=== PATIENT | female | born 1960 | race Caucasian/White ===

== ENCOUNTER 2019-04-10 02:05 | Emergency (ER) | payer SELFPAY ==
[~2019-04-10] VITALS: Ht 152.4 cm; Wt 106.6 kg
[2019-04-10] MEDS ORDERED: ALBUTEROL SULF 0.083% NEB SOLN 3 ML NEB NEB STA (02:12)
[2019-04-10] MEDS ORDERED: IPRATROPIUM BROMIDE 0.02% 2.5 ML NEB NEB ONE (02:15)
[2019-04-10] MEDS ORDERED: METHYLPREDNISOLONE SOD SUCC 125 MG/2ML VIAL IM ONE (02:15)
[2019-04-10 03:53] VITALS: BP 113/48
--- NOTE | 2019-04-10 07:26 | Diagnostic Imaging Report ---
EXAMINATION: CHEST 2 VIEWS INDICATION: Cough, short of breath COMPARISON: None FINDINGS: PA and lateral views TUBES and LINES: None. LUNGS: Lungs are well inflated. There is mild prominence of the central pulmonary vasculature, consistent with pulmonary venous congestion. Calcified granuloma in the left upper lobe. PLEURA: No pleural effusion or pneumothorax. HEART AND MEDIASTINUM: Borderline cardiomegaly. BONES AND SOFT TISSUES: No acute osseous lesion. Soft tissues are unremarkable. UPPER ABDOMEN: No free air under the diaphragm. IMPRESSION: Borderline cardiomegaly and central pulmonary vascular congestion. Signed by: Jon Edmond DO on 04/10/2019 7:23 AM
== END 2019-04-10 04:14 | disposition home or self-care (01) ==
LOC: ER 02:05
DX: J44.0 Chronic obstructive pulmonary disease with (acute) lower respiratory infection (principal); J44.1 Chronic obstructive pulmonary disease with (acute) exacerbation; J20.9 Acute bronchitis, unspecified; F17.200 Nicotine dependence, unspecified, uncomplicated
CPT/HCPCS: 71046; 94640; 99283; J2930

== ENCOUNTER 2021-01-24 01:50 | Emergency (ER) | payer SELFPAY ==
[~2021-01-24] VITALS: Ht 152.4 cm; Wt 106.6 kg
[2021-01-24] MEDS ORDERED: SODIUM CHLORIDE 0.9% 1000ML 1,000 ML IV STA (01:55)
[2021-01-24] MEDS ORDERED: CLINDAMYCIN 600MG / 50ML 50 ML IV STA (01:55)
[2021-01-24 02:05] LABS: BASOPHILS % 0.6 % (0.0-1.0); EOSINOPHILS # (AUTO) 0.3 (0.0-0.4); EOSINOPHILS % 3.9 % (0.0-6.0); HEMATOCRIT 42.8 % (34.2-44.1); HEMOGLOBIN 13.8 g/dL (12.0-16.0); LYMPHOCYTES # (AUTO) 1.6 (1.0-3.2); LYMPHOCYTES % 23.9 % (18.0-39.1); MEAN CORPUSCULAR HEMOGLOBIN 29.6 pg (28-32); MEAN CORPUSCULAR HGB CONC 32.2 g/dL (31-35); MEAN CORPUSCULAR VOLUME 91.8 fL (81-99); MONOCYTES # (AUTO) 0.9 (0.2-0.8); MONOCYTES % 13.4 % (4.4-11.3); NEUTROPHILS % 58.1 % (38.7-80.0); PLATELET COUNT 221 x10e3/uL (140-360); RED BLOOD COUNT 4.66 x10e6/uL (3.6-5.1); RED CELL DISTRIBUTION WIDTH 13.8 % (11.7-14.4)
[2021-01-24 02:24] LABS: ALANINE AMINOTRANSFERASE 14 IU/L (0-55); ALBUMIN/GLOBULIN RATIO 0.7 (0.8-2.0); ALKALINE PHOSPHATASE 68 IU/L (40-150); ANION GAP 18.5 mmol/L (8-16); BLOOD UREA NITROGEN 16 mg/dL (7-26); BUN/CREATININE RATIO 23 (6-25); CALCIUM 8.7 mg/dL (8.4-10.2); CARBON DIOXIDE 23 mmol/L (22-29); CHLORIDE 100 mmol/L (98-107); EST GLOMERULAR FILTRATION RATE > 60 ML/MIN (60-); GLUCOSE 327 mg/dL (74-118); POTASSIUM 4.5 mmol/L (3.5-5.1); SODIUM 137 mmol/L (136-145)
[2021-01-24] MEDS ORDERED: FLUCONAZOLE150 MG PO (02:50)
== END 2021-01-24 03:30 | disposition home or self-care (01) ==
LOC: ER 01:56
DX: B37.3 Candidiasis of vulva and vagina (principal); E11.65 Type 2 diabetes mellitus with hyperglycemia
CPT/HCPCS: 36415; 80053; 85025; 99282; J7030

== ENCOUNTER 2021-02-15 21:49 | Emergency (ER) | payer SELFPAY ==
[~2021-02-15] VITALS: Ht 152.4 cm; Wt 106.6 kg
[~2021-02-15 21:49] MED LIST: FLUCONAZOLE150 MG PO
== END 2021-02-15 22:30 | disposition home or self-care (01) ==
LOC: ER 22:07
DX: H66.91 Otitis media, unspecified, right ear (principal); E11.9 Type 2 diabetes mellitus without complications
CPT/HCPCS: 99282

== ENCOUNTER 2021-06-04 17:34 | Emergency (ER) | payer SELFPAY ==
[~2021-06-04] VITALS: Ht 152.4 cm; Wt 106.6 kg
[2021-06-04] MEDS ORDERED: KETOROLAC TROMETHAMINE 60 MG/2 ML VIAL IM ONE (18:00)
== END 2021-06-04 18:36 | disposition home or self-care (01) ==
LOC: ER 17:39
DX: R10.32 Left lower quadrant pain (principal); S39.011A Strain of muscle, fascia and tendon of abdomen, initial encounter; E11.9 Type 2 diabetes mellitus without complications; I50.9 Heart failure, unspecified; E78.5 Hyperlipidemia, unspecified
CPT/HCPCS: 99283; J1885

== ENCOUNTER 2021-08-17 04:28 | Emergency (ER) | payer SELFPAY ==
[~2021-08-17] VITALS: Ht 152.4 cm; Wt 108.9 kg
[2021-08-17 05:04] LABS: CLARITY,URINE CLOUDY (CLEAR); COLOR,URINE BROWN (YELLOW); KETONES,URINE TRACE (NEGATIVE); LEUKOCYTE ESTERASE ,URINE LARGE (NEGATIVE); NITRITE,URINE POSITIVE (NEGATIVE); PROTEIN,URINE DIPSTICK >=300 (NEGATIVE); URINE UROBILINOGEN 1 mg/dL (0.2 - 1)
[2021-08-17 05:08] LABS: BACTERIA,URINE MODERATE /HPF; EPITHELIAL CELLS,URINE FEW /LPF; RBC,URINE >50 /HPF (0-5)
== END 2021-08-17 05:30 | disposition home or self-care (01) ==
LOC: ER 04:46
DX: N39.0 Urinary tract infection, site not specified (principal); E11.9 Type 2 diabetes mellitus without complications; Z90.49 Acquired absence of other specified parts of digestive tract; F17.210 Nicotine dependence, cigarettes, uncomplicated; Z88.5 Allergy status to narcotic agent; Z88.0 Allergy status to penicillin; Z88.8 Allergy status to other drugs, medicaments and biological substances; E66.9 Obesity, unspecified; Z68.42 Body mass index [BMI] 45.0-49.9, adult
CPT/HCPCS: 81001; 87086; 87186; 99283

== ENCOUNTER 2022-06-11 22:50 | Emergency (ER) | payer SELFPAY ==
[~2022-06-11] VITALS: Ht 152.4 cm; Wt 108.9 kg
[2022-06-11 23:31] LABS: BASOPHILS % 0.5 % (0.0-1.0); EOSINOPHILS # (AUTO) 0.2 (0.0-0.4); EOSINOPHILS % 2.5 % (0.0-6.0); HEMOGLOBIN 15.8 g/dL (12.0-16.0); LYMPHOCYTES # (AUTO) 1.9 (1.0-3.2); LYMPHOCYTES % 22.9 % (18.0-39.1); MEAN CORPUSCULAR HEMOGLOBIN 30.3 pg (28-32); MEAN CORPUSCULAR HGB CONC 32.2 g/dL (31-35); MEAN CORPUSCULAR VOLUME 93.9 fL (81-99); MONOCYTES # (AUTO) 1.1 (0.2-0.8); MONOCYTES % 12.8 % (4.4-11.3); NEUTROPHILS # (AUTO) 5.1 (2.1-6.9); NEUTROPHILS % 61.1 % (38.7-80.0); PLATELET COUNT 179 x10e3/uL (140-360); RED BLOOD COUNT 5.22 x10e6/uL (3.6-5.1); RED CELL DISTRIBUTION WIDTH 12.2 % (11.7-14.4)
[2022-06-11 23:36] LABS: ALBUMIN 3.5 g/dL (3.5-5.0); CALCIUM 8.8 mg/dL (8.4-10.2); CREATININE, SERUM 0.65 mg/dL (0.57-1.11)
[2022-06-12] MEDS ORDERED: KETOROLAC TROMETHAMINE 30 MG/ML VIAL IV STA (00:41)
[2022-06-12 00:44] LABS: CLARITY,URINE SL CLOUDY (CLEAR); COLOR,URINE YELLOW (YELLOW); LEUKOCYTE ESTERASE ,URINE TRACE (NEGATIVE); NITRITE,URINE POSITIVE (NEGATIVE); PROTEIN,URINE DIPSTICK NEGATIVE (NEGATIVE)
[2022-06-12 00:45] LABS: KETONES,URINE 1+ (NEGATIVE); URINE UROBILINOGEN 0.2 mg/dL (0.2 - 1)
[2022-06-12 00:57] LABS: BACTERIA,URINE MANY /HPF; RBC,URINE 0-5 /HPF (0-5)
[2022-06-12 00:58] LABS: EPITHELIAL CELLS,URINE MODERATE /LPF
[2022-06-12] MEDS ORDERED: CIPRO500 MG PO (01:09)
== END 2022-06-12 01:27 | disposition home or self-care (01) ==
LOC: ER 23:01
DX: R30.0 Dysuria (principal); M54.50 Low back pain, unspecified; N39.0 Urinary tract infection, site not specified; K57.90 Diverticulosis of intestine, part unspecified, without perforation or abscess without bleeding; D25.9 Leiomyoma of uterus, unspecified; R16.0 Hepatomegaly, not elsewhere classified
CPT/HCPCS: 36415; 74176; 80053; 81001; 85025; 99284; J1885

== ENCOUNTER 2022-06-17 17:06 | Inpatient (IN) | payer SELFPAY ==
[~2022-06-17] VITALS: Ht 152.4 cm; Wt 108.9 kg
[~2022-06-17 17:06] MED LIST changes: +CIPRO500 MG PO
[2022-06-17] MEDS ORDERED: ONDANSETRON HCL INJ 2MG/ML 2ML 2 MG/ML VIAL IV STA (18:20)
[2022-06-17] MEDS ORDERED: SODIUM CHLORIDE FLUSH 10 ML SYR IV PRN (18:20)
[2022-06-17] MEDS ORDERED: SODIUM CHLORIDE 0.9% 1000ML 1,000 ML IV ONE (18:30)
[2022-06-17] MEDS ORDERED: ALBUTEROL/IPRATROPIUM 3 ML NEB NEB ONE (18:30)
[2022-06-17] MEDS ORDERED: METHYLPREDNISOLONE SOD SUCC 125 MG/2ML VIAL IV ONE (18:30)
[2022-06-17 19:08] LABS: BASOPHILS % 0.7 % (0.0-1.0); EOSINOPHILS # (AUTO) 0.1 (0.0-0.4); EOSINOPHILS % 2.3 % (0.0-6.0); HEMATOCRIT 47.1 % (34.2-44.1); HEMOGLOBIN 15.2 g/dL (12.0-16.0); LYMPHOCYTES # (AUTO) 1.1 (1.0-3.2); LYMPHOCYTES % 17.3 % (18.0-39.1); MEAN CORPUSCULAR HEMOGLOBIN 30.3 pg (28-32); MEAN CORPUSCULAR HGB CONC 32.3 g/dL (31-35); MEAN CORPUSCULAR VOLUME 93.8 fL (81-99); MONOCYTES # (AUTO) 1.1 (0.2-0.8); MONOCYTES % 17.3 % (4.4-11.3); NEUTROPHILS # (AUTO) 3.8 (2.1-6.9); NEUTROPHILS % 62.2 % (38.7-80.0); PLATELET COUNT 153 x10e3/uL (140-360); RED BLOOD COUNT 5.02 x10e6/uL (3.6-5.1); RED CELL DISTRIBUTION WIDTH 12.2 % (11.7-14.4)
[2022-06-17 19:19] LABS: INR 0.91; PROTHROMBIN TIME 13.1 seconds (11.9-14.5)
[2022-06-17 19:20] LABS: PARTIAL THROMBOPLASTIN TIME 29.4 seconds (23.8-35.5)
[2022-06-17 19:29] LABS: ALANINE AMINOTRANSFERASE 27 IU/L (0-55); ALBUMIN 3.4 g/dL (3.5-5.0); ALBUMIN/GLOBULIN RATIO 0.9 (0.8-2.0); ALKALINE PHOSPHATASE 61 IU/L (40-150); ANION GAP 15.8 mmol/L (8-16); BLOOD UREA NITROGEN 7 mg/dL (7-26); BUN/CREATININE RATIO 12 (6-25); CALCIUM 8.6 mg/dL (8.4-10.2); CARBON DIOXIDE 23 mmol/L (22-29); CHLORIDE 99 mmol/L (98-107); CREATININE, SERUM 0.57 mg/dL (0.57-1.11); GLUCOSE 209 mg/dL (74-118); POTASSIUM 3.8 mmol/L (3.5-5.1); SODIUM 134 mmol/L (136-145)
[2022-06-17] MEDS ORDERED: ACETAMINOPHEN 325 MG TAB PO ONE (19:30)
[2022-06-17 20:55] LABS: CLARITY,URINE CLEAR (CLEAR); COLOR,URINE YELLOW (YELLOW); KETONES,URINE 2+ (NEGATIVE); LEUKOCYTE ESTERASE ,URINE NEGATIVE (NEGATIVE); NITRITE,URINE NEGATIVE (NEGATIVE); PROTEIN,URINE DIPSTICK 1+ (NEGATIVE); URINE UROBILINOGEN 0.2 mg/dL (0.2 - 1)
[2022-06-17 21:11] LABS: BACTERIA,URINE FEW /HPF; EPITHELIAL CELLS,URINE MANY /LPF; MUCUS,URINE MANY (RARE)
[2022-06-17 21:12] LABS: WBC,URINE (MAN) 0-5 /HPF (0-5)
[2022-06-17] MEDS ORDERED: ONDANSETRON HCL INJ 2MG/ML 2ML 2 MG/ML VIAL IV PRN (22:00)
[2022-06-17] MEDS ORDERED: DEXTROSE 50% SYRINGE 50 ML IV PRN (22:00)
[2022-06-17] MEDS ORDERED: ALBUTEROL SULFATE HFA 8GM INHALATION AEROSOL INH PRN (22:00)
[2022-06-17] MEDS ORDERED: TEMAZEPAM 7.5 MG CAP PO PRN (23:45)
[2022-06-17] MEDS ORDERED: ACETAMINOPHEN 325 MG TAB PO PRN (23:45)
[2022-06-17] MEDS ORDERED: POLYETHYLENE GLYCOL 3350 17 GM PACK PO PRN (23:45)
[2022-06-17] MEDS ORDERED: HYDRALAZINE HCL 20 MG/ML VIAL IV PRN (23:45)
[2022-06-17] MEDS: ACETAMIN/BUTALBITAL/CAFFEINE TAB PO PRN (23:46)
[2022-06-17] MEDS ORDERED: METFORMIN HCL500 MG PO (23:51)
[2022-06-17] MEDS ORDERED: GLIMEPIRIDE4 MG PO (23:52)
[2022-06-17] MEDS ORDERED: FOLIC ACID0.4 MG PO (23:55)
[2022-06-17] MEDS ORDERED: PRAVASTATIN SOD40 MG PO (23:55)
[2022-06-17 23:57] VITALS: BP 106/72
[2022-06-18] VITALS (8 sets, daily range): BP systolic 97–119; BP diastolic 44–72
[2022-06-18] MEDS: ACETAMIN/BUTALBITAL/CAFFEINE TAB PO PRN ×3 (04:27→16:30)
[2022-06-18 06:10] LABS: BASOPHILS % 0.2 % (0.0-1.0); HEMATOCRIT 46.8 % (34.2-44.1); HEMOGLOBIN 14.9 g/dL (12.0-16.0); LYMPHOCYTES # (AUTO) 0.6 (1.0-3.2); LYMPHOCYTES % 11.3 % (18.0-39.1); MEAN CORPUSCULAR HEMOGLOBIN 30.2 pg (28-32); MEAN CORPUSCULAR HGB CONC 31.8 g/dL (31-35); MEAN CORPUSCULAR VOLUME 94.7 fL (81-99); MONOCYTES # (AUTO) 0.2 (0.2-0.8); MONOCYTES % 4.3 % (4.4-11.3); NEUTROPHILS # (AUTO) 4.1 (2.1-6.9); NEUTROPHILS % 83.8 % (38.7-80.0); PLATELET COUNT 152 x10e3/uL (140-360); RED BLOOD COUNT 4.94 x10e6/uL (3.6-5.1)
[2022-06-18 06:42] LABS: ALBUMIN 3.3 g/dL (3.5-5.0); ALBUMIN/GLOBULIN RATIO 0.9 (0.8-2.0); ANION GAP 18.7 mmol/L (8-16); CALCIUM 8.6 mg/dL (8.4-10.2); CREATININE, SERUM 0.65 mg/dL (0.57-1.11); POTASSIUM 4.7 mmol/L (3.5-5.1)
[2022-06-18 06:58] LABS: MAGNESIUM 1.4 MG/DL (1.3-2.1)
[2022-06-18 07:18] LABS: THYROID STIMULATING HORMONE 1.543 uIU/mL (0.350-4.940)
[2022-06-18] MEDS: FAMOTIDINE 20 MG/2 ML VIAL IV SCH ×2 (08:47→17:30)
[2022-06-18] MEDS: DOCUSATE SODIUM 100 MG CAP PO SCH ×3 (08:47→17:00)
[2022-06-18] MEDS: INSULIN REGULAR, HUMAN 100 UNIT/1 ML SQ SCH ×4 (09:02→23:55)
[2022-06-18] MEDS ORDERED: ONDANSETRON HCL 4 MG ORAL DISINTEGRATING TAB PO PRN (10:15)
[2022-06-18] MEDS: OSELTAMIVIR PHOSPHATE 75 MG CAP PO SCH ×2 (10:22→21:27)
[2022-06-18] MEDS: GUAIFENESIN 200 MG/10 ML UDC PO PRN (17:00)
[2022-06-18] MEDS ORDERED: REMDESIVIR 100MG 200 MG in SODIUM CHLORIDE 0.9% 100 ML IV ONE (17:00)
[2022-06-18] MEDS ORDERED: PHENYLEPH/SHARK OIL/MO/PETROL 30 GM OINT RC PRN (17:00)
[2022-06-18] MEDS ORDERED: LOPERAMIDE HCL 2 MG CAP PO PRN (17:00)
[2022-06-18] MEDS: ASCORBIC ACID 500 MG TAB PO SCH (17:30)
[2022-06-18] MEDS: DEXAMETHASONE SOD PHOS 10 MG/1 ML VIAL IV SCH (17:30)
[2022-06-18] MEDS: ENOXAPARIN 30 MG/0.3 ML SYR SC SCH (18:06)
[2022-06-18] MEDS: CHOLESTYRAMINE 4 GM PACKET PO SCH (19:17)
[2022-06-18] MEDS: ALBUTEROL/IPRATROPIUM 3 ML NEB NEB PRN (19:50)
[2022-06-18] MEDS: CEFTRIAXONE 2 GM in SODIUM CHLORIDE 0.9% 100 ML IV SCH (21:27)
[2022-06-19 05:59] VITALS: BP 105/56
[2022-06-19] MEDS: ACETAMIN/BUTALBITAL/CAFFEINE TAB PO PRN ×3 (06:50→20:47)
[2022-06-19 08:01] VITALS: BP 97/57
[2022-06-19 08:24] VITALS: BP 123/69
[2022-06-19] MEDS: ENOXAPARIN 30 MG/0.3 ML SYR SC SCH ×2 (08:55→17:39)
[2022-06-19] MEDS: GUAIFENESIN 200 MG/10 ML UDC PO PRN ×2 (08:55→17:41)
[2022-06-19] MEDS: ASCORBIC ACID 500 MG TAB PO SCH ×2 (08:57→17:39)
[2022-06-19] MEDS: OSELTAMIVIR PHOSPHATE 75 MG CAP PO SCH ×2 (08:57→20:42)
[2022-06-19] MEDS: ZINC SULFATE 50 MG CAP PO SCH (08:57)
[2022-06-19] MEDS: FAMOTIDINE 20 MG/2 ML VIAL IV SCH ×2 (08:58→17:39)
[2022-06-19] MEDS: INSULIN REGULAR, HUMAN 100 UNIT/1 ML SQ SCH ×3 (08:58→17:40)
[2022-06-19] MEDS: DOCUSATE SODIUM 100 MG CAP PO SCH ×2 (09:00→17:00)
[2022-06-19 09:32] LABS: BASOPHILS % 0.5 % (0.0-1.0); HEMATOCRIT 44.9 % (34.2-44.1); HEMOGLOBIN 14.4 g/dL (12.0-16.0); LYMPHOCYTES # (AUTO) 1.6 (1.0-3.2); LYMPHOCYTES % 36.2 % (18.0-39.1); MEAN CORPUSCULAR HEMOGLOBIN 30.1 pg (28-32); MEAN CORPUSCULAR HGB CONC 32.1 g/dL (31-35); MEAN CORPUSCULAR VOLUME 93.7 fL (81-99); MONOCYTES # (AUTO) 0.7 (0.2-0.8); MONOCYTES % 16.4 % (4.4-11.3); NEUTROPHILS % 46.7 % (38.7-80.0); PLATELET COUNT 158 x10e3/uL (140-360); RED BLOOD COUNT 4.79 x10e6/uL (3.6-5.1); RED CELL DISTRIBUTION WIDTH 12.2 % (11.7-14.4)
[2022-06-19 09:51] LABS: ALBUMIN 3.3 g/dL (3.5-5.0); ALBUMIN/GLOBULIN RATIO 0.8 (0.8-2.0); ANION GAP 16.2 mmol/L (8-16); CALCIUM 9.1 mg/dL (8.4-10.2); CREATININE, SERUM 0.61 mg/dL (0.57-1.11); POTASSIUM 4.2 mmol/L (3.5-5.1)
[2022-06-19] MEDS: CHOLESTYRAMINE 4 GM PACKET PO SCH ×2 (10:00→17:39)
[2022-06-19 11:24] VITALS: BP 116/50
[2022-06-19] MEDS: REMDESIVIR 100MG 100 MG in SODIUM CHLORIDE 0.9% 100 ML IV SCH (15:08)
[2022-06-19 15:22] VITALS: BP 103/62
[2022-06-19] MEDS: DEXAMETHASONE SOD PHOS 10 MG/1 ML VIAL IV SCH (17:39)
[2022-06-19 20:00] VITALS: BP 117/65
[2022-06-19] MEDS: CEFTRIAXONE 2 GM in SODIUM CHLORIDE 0.9% 100 ML IV SCH (20:42)
[2022-06-20] VITALS (9 sets, daily range): BP systolic 122–152; BP diastolic 63–78
[2022-06-20] MEDS: INSULIN REGULAR, HUMAN 100 UNIT/1 ML SQ SCH ×5 (01:57→21:34)
[2022-06-20 06:41] LABS: MAGNESIUM 1.4 MG/DL (1.3-2.1); PHOSPHORUS 3.6 MG/DL (2.3-4.7)
[2022-06-20 07:29] LABS: BASOPHILS % 0.4 % (0.0-1.0); HEMATOCRIT 44.2 % (34.2-44.1); LYMPHOCYTES # (AUTO) 1.9 (1.0-3.2); LYMPHOCYTES % 36.8 % (18.0-39.1); MEAN CORPUSCULAR HEMOGLOBIN 30.1 pg (28-32); MEAN CORPUSCULAR HGB CONC 33.9 g/dL (31-35); MEAN CORPUSCULAR VOLUME 88.8 fL (81-99); MONOCYTES # (AUTO) 0.7 (0.2-0.8); MONOCYTES % 13.7 % (4.4-11.3); NEUTROPHILS # (AUTO) 2.6 (2.1-6.9); NEUTROPHILS % 48.9 % (38.7-80.0); PLATELET COUNT 186 x10e3/uL (140-360); RED BLOOD COUNT 4.98 x10e6/uL (3.6-5.1); RED CELL DISTRIBUTION WIDTH 12.3 % (11.7-14.4)
[2022-06-20 08:27] LABS: ALBUMIN 3.4 g/dL (3.5-5.0); ALBUMIN/GLOBULIN RATIO 0.8 (0.8-2.0); ANION GAP 19.2 mmol/L (8-16); CALCIUM 9.1 mg/dL (8.4-10.2); CREATININE, SERUM 0.66 mg/dL (0.57-1.11); POTASSIUM 4.2 mmol/L (3.5-5.1)
[2022-06-20] MEDS: GLIMEPIRIDE 2 MG TAB PO SCH (08:31)
[2022-06-20] MEDS: FOLIC ACID 1 MG TAB PO SCH (08:32)
[2022-06-20] MEDS: ZINC SULFATE 50 MG CAP PO SCH (08:32)
[2022-06-20] MEDS: ASCORBIC ACID 500 MG TAB PO SCH ×2 (08:32→16:46)
[2022-06-20] MEDS: DOCUSATE SODIUM 100 MG CAP PO SCH ×2 (08:32→16:46)
[2022-06-20] MEDS: OSELTAMIVIR PHOSPHATE 75 MG CAP PO SCH ×2 (08:32→20:24)
[2022-06-20] MEDS: ENOXAPARIN 30 MG/0.3 ML SYR SC SCH ×2 (08:33→16:47)
[2022-06-20] MEDS: METFORMIN HCL 500 MG TAB PO SCH ×2 (08:33→16:46)
[2022-06-20] MEDS: FAMOTIDINE 20 MG/2 ML VIAL IV SCH ×2 (08:33→16:47)
[2022-06-20] MEDS: CHOLESTYRAMINE 4 GM PACKET PO SCH ×2 (08:34→18:00)
[2022-06-20] MEDS ORDERED: MAGNESIUM SULFATE 2GM/50ML 50 ML IV ONE ×3 (12:00→18:00)
[2022-06-20] MEDS ORDERED: BENZONATATE 100 MG CAP PO PRN (12:30)
[2022-06-20] MEDS: DEXAMETHASONE SOD PHOS 10 MG/1 ML VIAL IV SCH (16:47)
[2022-06-20] MEDS: REMDESIVIR 100MG 100 MG in SODIUM CHLORIDE 0.9% 100 ML IV SCH (16:47)
[2022-06-20] MEDS: PRAVASTATIN 20 MG TAB PO SCH (20:23)
[2022-06-20] MEDS: CEFTRIAXONE 2 GM in SODIUM CHLORIDE 0.9% 100 ML IV SCH (20:23)
[2022-06-20] MEDS: GUAIFENESIN 200 MG/10 ML UDC PO PRN (20:24)
[2022-06-21] VITALS (7 sets, daily range): BP systolic 102–148; BP diastolic 52–98
[2022-06-21 06:15] LABS: BASOPHILS % 0.4 % (0.0-1.0); HEMATOCRIT 47.4 % (34.2-44.1); HEMOGLOBIN 15.3 g/dL (12.0-16.0); LYMPHOCYTES # (AUTO) 2.7 (1.0-3.2); LYMPHOCYTES % 38.6 % (18.0-39.1); MEAN CORPUSCULAR HEMOGLOBIN 30.1 pg (28-32); MEAN CORPUSCULAR HGB CONC 32.3 g/dL (31-35); MEAN CORPUSCULAR VOLUME 93.1 fL (81-99); MONOCYTES # (AUTO) 0.8 (0.2-0.8); MONOCYTES % 11.2 % (4.4-11.3); NEUTROPHILS # (AUTO) 3.4 (2.1-6.9); NEUTROPHILS % 49.5 % (38.7-80.0); PLATELET COUNT 190 x10e3/uL (140-360); RED BLOOD COUNT 5.09 x10e6/uL (3.6-5.1)
[2022-06-21 06:41] LABS: ALBUMIN 3.3 g/dL (3.5-5.0); ALBUMIN/GLOBULIN RATIO 0.8 (0.8-2.0); ANION GAP 18.2 mmol/L (8-16); CALCIUM 8.6 mg/dL (8.4-10.2); CREATININE, SERUM 0.72 mg/dL (0.57-1.11); POTASSIUM 4.2 mmol/L (3.5-5.1)
[2022-06-21] MEDS ORDERED: MAGNESIUM SULFATE 2GM/50ML 50 ML IV ONE (08:30)
[2022-06-21] MEDS: CHOLESTYRAMINE 4 GM PACKET PO SCH ×2 (09:49→18:00)
[2022-06-21] MEDS: FAMOTIDINE 20 MG/2 ML VIAL IV SCH (09:50)
[2022-06-21] MEDS: ZINC SULFATE 50 MG CAP PO SCH (09:50)
[2022-06-21] MEDS: OSELTAMIVIR PHOSPHATE 75 MG CAP PO SCH ×2 (09:50→20:04)
[2022-06-21] MEDS: AZITHROMYCIN 250 MG TAB PO SCH (09:51)
[2022-06-21] MEDS: FOLIC ACID 1 MG TAB PO SCH (09:51)
[2022-06-21] MEDS: DOCUSATE SODIUM 100 MG CAP PO SCH ×2 (09:51→16:47)
[2022-06-21] MEDS: ASCORBIC ACID 500 MG TAB PO SCH ×2 (09:51→16:47)
[2022-06-21] MEDS: GLIMEPIRIDE 2 MG TAB PO SCH (09:51)
[2022-06-21] MEDS: METFORMIN HCL 500 MG TAB PO SCH ×2 (09:51→16:47)
[2022-06-21] MEDS: ENOXAPARIN 30 MG/0.3 ML SYR SC SCH ×2 (09:52→16:47)
[2022-06-21] MEDS: INSULIN REGULAR, HUMAN 100 UNIT/1 ML SQ SCH ×4 (09:53→21:55)
[2022-06-21] MEDS: REMDESIVIR 100MG 100 MG in SODIUM CHLORIDE 0.9% 100 ML IV SCH (13:49)
[2022-06-21] MEDS: FAMOTIDINE 20 MG TAB PO SCH (16:47)
[2022-06-21] MEDS: DEXAMETHASONE SOD PHOS 10 MG/1 ML VIAL IV SCH (16:47)
[2022-06-21] MEDS: ALBUTEROL/IPRATROPIUM 3 ML NEB NEB PRN (19:52)
[2022-06-21] MEDS: PRAVASTATIN 20 MG TAB PO SCH (20:04)
[2022-06-21] MEDS: CEFTRIAXONE 2 GM in SODIUM CHLORIDE 0.9% 100 ML IV SCH (20:04)
[2022-06-21] MEDS: ACETAMIN/BUTALBITAL/CAFFEINE TAB PO PRN (20:04)
[2022-06-21] MEDS: GUAIFENESIN 200 MG/10 ML UDC PO PRN (20:16)
[2022-06-22 00:58] VITALS: BP 154/91
[2022-06-22 04:00] VITALS: BP 135/73
[2022-06-22 08:00] VITALS: BP 160/94
[2022-06-22] MEDS: INSULIN REGULAR, HUMAN 100 UNIT/1 ML SQ SCH ×2 (08:00→11:45)
[2022-06-22] MEDS: GLIMEPIRIDE 2 MG TAB PO SCH (08:28)
[2022-06-22] MEDS: FAMOTIDINE 20 MG TAB PO SCH (08:28)
[2022-06-22] MEDS: AZITHROMYCIN 250 MG TAB PO SCH (08:58)
[2022-06-22] MEDS: ZINC SULFATE 50 MG CAP PO SCH (08:58)
[2022-06-22] MEDS: ENOXAPARIN 30 MG/0.3 ML SYR SC SCH (08:58)
[2022-06-22] MEDS: OSELTAMIVIR PHOSPHATE 75 MG CAP PO SCH (08:58)
[2022-06-22] MEDS: ASCORBIC ACID 500 MG TAB PO SCH (08:58)
[2022-06-22] MEDS: FOLIC ACID 1 MG TAB PO SCH (08:58)
[2022-06-22] MEDS: METFORMIN HCL 500 MG TAB PO SCH (08:58)
[2022-06-22] MEDS: DOCUSATE SODIUM 100 MG CAP PO SCH (08:59)
[2022-06-22] MEDS: CHOLESTYRAMINE 4 GM PACKET PO SCH (09:00)
[2022-06-22 09:16] LABS: BASOPHILS % 0.4 % (0.0-1.0); EOSINOPHILS % 0.4 % (0.0-6.0); HEMATOCRIT 47.5 % (34.2-44.1); HEMOGLOBIN 15.3 g/dL (12.0-16.0); LYMPHOCYTES # (AUTO) 2.7 (1.0-3.2); LYMPHOCYTES % 36.4 % (18.0-39.1); MEAN CORPUSCULAR HEMOGLOBIN 29.7 pg (28-32); MEAN CORPUSCULAR HGB CONC 32.2 g/dL (31-35); MEAN CORPUSCULAR VOLUME 92.2 fL (81-99); MONOCYTES # (AUTO) 0.7 (0.2-0.8); MONOCYTES % 9.9 % (4.4-11.3); NEUTROPHILS # (AUTO) 3.9 (2.1-6.9); NEUTROPHILS % 52.6 % (38.7-80.0); PLATELET COUNT 193 x10e3/uL (140-360); RED BLOOD COUNT 5.15 x10e6/uL (3.6-5.1); RED CELL DISTRIBUTION WIDTH 11.9 % (11.7-14.4)
[2022-06-22 09:36] LABS: ALBUMIN 3.3 g/dL (3.5-5.0); ALBUMIN/GLOBULIN RATIO 0.8 (0.8-2.0); ANION GAP 19.3 mmol/L (8-16); CALCIUM 9.3 mg/dL (8.4-10.2); CREATININE, SERUM 0.61 mg/dL (0.57-1.11); POTASSIUM 4.3 mmol/L (3.5-5.1)
[2022-06-22 11:24] VITALS: BP 126/79
[2022-06-22] MEDS: REMDESIVIR 100MG 100 MG in SODIUM CHLORIDE 0.9% 100 ML IV SCH (13:31)
[2022-06-22] MEDS ORDERED: ASCORBIC ACID500 MG PO (14:48)
[2022-06-22] MEDS ORDERED: NICOTINE PATCH1 EAC1 EXT (14:48)
[2022-06-22] MEDS ORDERED: ZITHROMAX250 MG PO (14:48)
[2022-06-22] MEDS ORDERED: Albuterol/Ipratropium Nebulize NEB (14:48)
[2022-06-22] MEDS ORDERED: A.I.R.S. NEBUL1 EACH (14:48)
[2022-06-22] MEDS ORDERED: DEXAMETHASONE4 MG PO (14:48)
[2022-06-22 15:22] VITALS: BP 132/65
== END 2022-06-22 17:36 | disposition home or self-care (01) | DRG 178 ==
LOC: ER 17:30 → ERHOLD 21:55 → MED/SURG3 23:07
PROVIDERS: ADMIT Internal Medicine; ATTEND Internal Medicine
PROC: 8E0ZXY6 Isolation (ICD-10-PCS; principal; 2022-06-17)
PROC: XW033E5 Introduction of Remdesivir Anti-infective into Peripheral Vein, Percutaneous Approach, New Technology Group 5 (ICD-10-PCS; 2022-06-19)
PROC: 02HV33Z Insertion of Infusion Device into Superior Vena Cava, Percutaneous Approach (ICD-10-PCS; 2022-06-20)
DX: U07.1 COVID-19 (principal); J44.1 Chronic obstructive pulmonary disease with (acute) exacerbation; Z68.42 Body mass index [BMI] 45.0-49.9, adult; E11.65 Type 2 diabetes mellitus with hyperglycemia; E78.5 Hyperlipidemia, unspecified; E11.69 Type 2 diabetes mellitus with other specified complication; E66.01 Morbid (severe) obesity due to excess calories; M19.90 Unspecified osteoarthritis, unspecified site; K76.0 Fatty (change of) liver, not elsewhere classified; Z28.310 Unvaccinated for COVID-19; J10.1 Influenza due to other identified influenza virus with other respiratory manifestations; M06.9 Rheumatoid arthritis, unspecified; F17.200 Nicotine dependence, unspecified, uncomplicated; E83.42 Hypomagnesemia; K64.9 Unspecified hemorrhoids; Z79.4 Long term (current) use of insulin; R19.7 Diarrhea, unspecified; R09.02 Hypoxemia; E11.22 Type 2 diabetes mellitus with diabetic chronic kidney disease; I12.9 Hypertensive chronic kidney disease with stage 1 through stage 4 chronic kidney disease, or unspecified chronic kidney disease; N18.9 Chronic kidney disease, unspecified
CPT/HCPCS: 0223U; 36415; 71045; 80053; 80061; 81001; 82948; 83036; 83735; 84100; 84443; 84484; 85025; 85379; 85610; 85730; 86140; 87400; 93005; 94640; 94799; 99284; J0248; J0456; J0696; J1100; J1650; J1817; J2405; J2930; J3475; J7030; J7050

== ENCOUNTER 2022-12-22 06:31 | Emergency (ER) | payer SELFPAY ==
[~2022-12-22] VITALS: Ht 152.4 cm; Wt 108.9 kg
[~2022-12-22 06:31] MED LIST changes: +A.I.R.S. NEBUL1 EACH; +ASCORBIC ACID500 MG PO; +Albuterol/Ipratropium Nebulize NEB; +CYCLOBENZAPRINE5 MG PO; +DEXAMETHASONE4 MG PO; +FOLIC ACID0.4 MG PO; +GLIMEPIRIDE4 MG PO; +METFORMIN HCL500 MG PO; +METHOCARBAMOL750 MG PO; +NAPROSYN500 MG PO; +NICOTINE PATCH1 EAC1 EXT; +PRAVASTATIN SOD40 MG PO; +ZITHROMAX250 MG PO
[2022-12-22 07:39] LABS: BASOPHILS % 0.5 % (0.0-1.0); EOSINOPHILS # (AUTO) 0.3 (0.0-0.4); EOSINOPHILS % 5.2 % (0.0-6.0); HEMATOCRIT 38.6 % (34.2-44.1); HEMOGLOBIN 12.8 g/dL (12.0-16.0); LYMPHOCYTES # (AUTO) 2.2 (1.0-3.2); LYMPHOCYTES % 34.4 % (18.0-39.1); MEAN CORPUSCULAR HEMOGLOBIN 29.8 pg (28-32); MEAN CORPUSCULAR HGB CONC 33.2 g/dL (31-35); MONOCYTES % 15.2 % (4.4-11.3); NEUTROPHILS # (AUTO) 2.8 (2.1-6.9); NEUTROPHILS % 44.4 % (38.7-80.0); PLATELET COUNT 196 x10e3/uL (140-360); RED BLOOD COUNT 4.29 x10e6/uL (3.6-5.1); RED CELL DISTRIBUTION WIDTH 12.6 % (11.7-14.4)
[2022-12-22 08:03] LABS: ALBUMIN 3.3 g/dL (3.5-5.0); ALBUMIN/GLOBULIN RATIO 0.9 (0.8-2.0); ANION GAP 17.2 mmol/L (8-16); CALCIUM 9.3 mg/dL (8.4-10.2); CREATININE, SERUM 0.68 mg/dL (0.57-1.11); POTASSIUM 4.2 mmol/L (3.5-5.1)
[2022-12-22] MEDS ORDERED: BENZONATATE100 MG PO (10:12)
[2022-12-22 11:52] VITALS: BP 130/76
== END 2022-12-22 10:18 | disposition home or self-care (01) ==
LOC: ER 06:33
DX: R06.02 Shortness of breath (principal); J06.9 Acute upper respiratory infection, unspecified; R05.9 Cough, unspecified; E11.65 Type 2 diabetes mellitus with hyperglycemia; J44.9 Chronic obstructive pulmonary disease, unspecified; J45.909 Unspecified asthma, uncomplicated; E78.5 Hyperlipidemia, unspecified; M06.9 Rheumatoid arthritis, unspecified; E66.9 Obesity, unspecified; Z20.822 Contact with and (suspected) exposure to COVID-19
CPT/HCPCS: 36415; 71046; 80053; 84484; 85025; 87400; 99283; U0002

== ENCOUNTER 2023-06-28 16:32 | Emergency (ER) | payer SELFPAY ==
[~2023-06-28] VITALS: Ht 149.9 cm; Wt 106.6 kg
[~2023-06-28 16:32] MED LIST changes: +BENZONATATE100 MG PO
[2023-06-28 17:19] LABS: STREPTOCOCCUS GRP A ANTIGEN NEGATIVE (NEGATIVE)
[2023-06-28 17:29] LABS: INFLUENZAE A&B ANTIGEN (RAPID) NEGATIVE (NEGATIVE)
[2023-06-28] MEDS ORDERED: BENZONATATE100 MG PO (18:04)
[2023-06-28 18:15] VITALS: BP 107/60; PULSE 86; RESP 16; TEMP 98.1; O2SAT 94
== END 2023-06-28 18:09 | disposition home or self-care (01) ==
LOC: ER 16:37
DX: R05.9 Cough, unspecified (principal); B34.9 Viral infection, unspecified; E11.9 Type 2 diabetes mellitus without complications; E78.5 Hyperlipidemia, unspecified; J44.9 Chronic obstructive pulmonary disease, unspecified; M06.9 Rheumatoid arthritis, unspecified; E66.9 Obesity, unspecified; Z20.822 Contact with and (suspected) exposure to COVID-19
CPT/HCPCS: 71045; 83518; 87070; 87400; 99284; U0002

== ENCOUNTER 2023-09-08 16:55 | Emergency (ER) | payer SELFPAY ==
[~2023-09-08] VITALS: Ht 149.9 cm; Wt 106.6 kg
[~2023-09-08 16:55] MED LIST changes: +EPINEPHRIN0.3 MG/0.3 INJ
[2023-09-08 16:58] VITALS: O2SAT 98
[2023-09-08] MEDS ORDERED: TETANUS/DIPHTHERIA TOX ADULT 0.5 ML SYR IM ONE (17:15)
[2023-09-08] MEDS ORDERED: DOXYCYCLINE HY100 MG PO (17:38)
== END 2023-09-08 17:56 | disposition home or self-care (01) ==
LOC: ER 17:00
DX: S61.411A Laceration without foreign body of right hand, initial encounter (principal); W45.8XXA Other foreign body or object entering through skin, initial encounter; Y92.89 Other specified places as the place of occurrence of the external cause; E11.9 Type 2 diabetes mellitus without complications; N28.9 Disorder of kidney and ureter, unspecified; J44.9 Chronic obstructive pulmonary disease, unspecified; E78.5 Hyperlipidemia, unspecified; M06.9 Rheumatoid arthritis, unspecified; E66.9 Obesity, unspecified
CPT/HCPCS: 90714; 99282

== ENCOUNTER 2023-09-23 15:05 | Emergency (ER) | payer SELFPAY ==
[~2023-09-23] VITALS: Ht 149.9 cm; Wt 106.6 kg
[~2023-09-23 15:05] MED LIST changes: +DOXYCYCLINE HY100 MG PO
[2023-09-23 16:07] LABS: BASOPHILS % 0.3 % (0.0-1.0); EOSINOPHILS # (AUTO) 0.2 (0.0-0.4); EOSINOPHILS % 3.1 % (0.0-6.0); HEMATOCRIT 43.2 % (34.2-44.1); LYMPHOCYTES # (AUTO) 1.4 (1.0-3.2); LYMPHOCYTES % 22.6 % (18.0-39.1); MEAN CORPUSCULAR HEMOGLOBIN 29.9 pg (28-32); MEAN CORPUSCULAR HGB CONC 32.4 g/dL (31-35); MEAN CORPUSCULAR VOLUME 92.1 fL (81-99); MONOCYTES # (AUTO) 0.9 (0.2-0.8); MONOCYTES % 14.7 % (4.4-11.3); NEUTROPHILS # (AUTO) 3.8 (2.1-6.9); PLATELET COUNT 214 x10e3/uL (140-360); RED BLOOD COUNT 4.69 x10e6/uL (3.6-5.1); RED CELL DISTRIBUTION WIDTH 13.2 % (11.7-14.4); WHITE BLOOD COUNT 6.38 x10e3/uL (4.8-10.8)
[2023-09-23 16:18] LABS: ALBUMIN 3.5 g/dL (3.5-5.0); ALBUMIN/GLOBULIN RATIO 0.9 (0.8-2.0); ANION GAP 16.4 mmol/L (8-16); BILIRUBIN,TOTAL 0.4 mg/dL (0.2-1.2); CALCIUM 8.6 mg/dL (8.4-10.2); CREATININE, SERUM 0.75 mg/dL (0.57-1.11); POTASSIUM 4.4 mmol/L (3.5-5.1); TOTAL PROTEIN 7.3 g/dL (6.5-8.1)
[2023-09-23 16:40] LABS: BILIRUBIN,URINE NEGATIVE (NEGATIVE); CLARITY,URINE CLEAR (CLEAR); COLOR,URINE YELLOW (YELLOW); GLUCOSE, URINE >=1000 (NEGATIVE); KETONES,URINE 2+ (NEGATIVE); LEUKOCYTE ESTERASE ,URINE NEGATIVE (NEGATIVE); NITRITE,URINE NEGATIVE (NEGATIVE); PH,URINE 5.5 (5 - 7); PROTEIN,URINE DIPSTICK NEGATIVE (NEGATIVE); URINE UROBILINOGEN 0.2 mg/dL (0.2 - 1)
[2023-09-23 16:51] LABS: BACTERIA,URINE RARE /HPF
[2023-09-23] MEDS: ONDANSETRON HCL INJ 2MG/ML 2ML 2 MG/ML VIAL IV STA (18:16)
[2023-09-23] MEDS: KETOROLAC TROMETHAMINE 30 MG/ML VIAL IV STA (18:16)
[2023-09-23] MEDS: SODIUM CHLORIDE 0.9% 1000ML 1,000 ML IV STA (18:16)
[2023-09-23] MEDS ORDERED: KETOROLAC TROME10 MG PO (18:39)
[2023-09-23] MEDS ORDERED: LEVOFLOXACIN750 MG PO (18:39)
[2023-09-23] MEDS: INSULIN REGULAR, HUMAN 100 UNIT/1 ML IV STA (18:45)
[2023-09-23 19:23] VITALS: BP 143/76; O2SAT 96
== END 2023-09-23 19:20 | disposition home or self-care (01) ==
LOC: ER 15:25
DX: R10.30 Lower abdominal pain, unspecified (principal); R16.0 Hepatomegaly, not elsewhere classified; E11.65 Type 2 diabetes mellitus with hyperglycemia; D25.9 Leiomyoma of uterus, unspecified; E78.5 Hyperlipidemia, unspecified; N28.9 Disorder of kidney and ureter, unspecified; J44.9 Chronic obstructive pulmonary disease, unspecified; J45.909 Unspecified asthma, uncomplicated; M06.9 Rheumatoid arthritis, unspecified; E66.9 Obesity, unspecified
CPT/HCPCS: 36415; 74176; 80053; 81001; 82948; 83690; 85025; 99284; J1885; J2405; J7030

== ENCOUNTER 2024-01-01 12:26 | Emergency (ER) | payer SELFPAY ==
[~2024-01-01] VITALS: Ht 153 cm; Wt 108.9 kg
[~2024-01-01 12:26] MED LIST changes: +CLINDAMYCIN HC150 MG PO; +KETOROLAC TROME10 MG PO; +LEVOFLOXACIN500 MG PO; +LEVOFLOXACIN750 MG PO
[2024-01-01 13:20] VITALS: O2SAT 95
== END 2024-01-01 17:05 | disposition home or self-care (01) ==
LOC: ER 13:12
DX: R05.9 Cough, unspecified (principal); J06.9 Acute upper respiratory infection, unspecified; E11.9 Type 2 diabetes mellitus without complications; J44.9 Chronic obstructive pulmonary disease, unspecified; E78.5 Hyperlipidemia, unspecified; N28.9 Disorder of kidney and ureter, unspecified; M06.9 Rheumatoid arthritis, unspecified; E66.9 Obesity, unspecified; Z11.52 Encounter for screening for COVID-19
CPT/HCPCS: 71046; 87400; 99283; U0002

== ENCOUNTER 2024-06-09 10:40 | Emergency (ER) | payer SELFPAY ==
[~2024-06-09] VITALS: Ht 152.4 cm; Wt 106.6 kg
[2024-06-09 11:00] VITALS: PULSE 80; RESP 16; TEMP 98.2; O2SAT 96
== END 2024-06-09 11:50 | disposition home or self-care (01) ==
LOC: ER 11:02
DX: R09.89 Other specified symptoms and signs involving the circulatory and respiratory systems (principal); E11.22 Type 2 diabetes mellitus with diabetic chronic kidney disease; J44.9 Chronic obstructive pulmonary disease, unspecified; E78.5 Hyperlipidemia, unspecified; J45.909 Unspecified asthma, uncomplicated; M06.9 Rheumatoid arthritis, unspecified; E66.9 Obesity, unspecified
CPT/HCPCS: 99282

== ENCOUNTER 2024-07-01 22:16 | Emergency (ER) | payer SELFPAY ==
[~2024-07-01] VITALS: Ht 153 cm; Wt 106.6 kg
[2024-07-01 22:21] VITALS: TEMP 97.9
[2024-07-01 22:43] LABS: BASOPHILS % 0.4 % (0.0-1.0); EOSINOPHILS # (AUTO) 0.3 (0.0-0.4); EOSINOPHILS % 4.2 % (0.0-6.0); HEMATOCRIT 41.3 % (34.2-44.1); HEMOGLOBIN 13.6 g/dL (12.0-16.0); LYMPHOCYTES # (AUTO) 1.7 (1.0-3.2); MEAN CORPUSCULAR HEMOGLOBIN 30.5 pg (28-32); MEAN CORPUSCULAR HGB CONC 32.9 g/dL (31-35); MEAN CORPUSCULAR VOLUME 92.6 fL (81-99); MONOCYTES # (AUTO) 1.3 (0.2-0.8); MONOCYTES % 15.8 % (4.4-11.3); NEUTROPHILS # (AUTO) 4.6 (2.1-6.9); NEUTROPHILS % 58.3 % (38.7-80.0); PLATELET COUNT 232 x10e3/uL (140-360); RED BLOOD COUNT 4.46 x10e6/uL (3.6-5.1); RED CELL DISTRIBUTION WIDTH 12.8 % (11.7-14.4); WHITE BLOOD COUNT 7.92 x10e3/uL (4.8-10.8)
[2024-07-01 23:11] LABS: TROPONIN I < 0.05 ng/mL (0.0-0.40)
[2024-07-01 23:12] LABS: COVID 19 ANTIGEN NOT DETECTED (NEGATIVE)
[2024-07-01 23:16] LABS: ALANINE AMINOTRANSFERASE 14 IU/L (0-55); ALBUMIN 3.1 g/dL (3.5-5.0); ALBUMIN/GLOBULIN RATIO 0.8 (0.8-2.0); ALKALINE PHOSPHATASE 90 IU/L (40-150); ANION GAP 19.5 mmol/L (8-16); BILIRUBIN,TOTAL 0.2 mg/dL (0.2-1.2); BLOOD UREA NITROGEN 17 mg/dL (7-26); BUN/CREATININE RATIO 18 (6-25); CALCIUM 8.4 mg/dL (8.4-10.2); CARBON DIOXIDE 21 mmol/L (22-29); CHLORIDE 98 mmol/L (98-107); CREATINE KINASE 47 IU/L (29-168); CREATININE, SERUM 0.96 mg/dL (0.57-1.11); EST GLOMERULAR FILTRATION RATE 66 ML/MIN (>=60); POTASSIUM 4.5 mmol/L (3.5-5.1); SODIUM 134 mmol/L (136-145); TOTAL PROTEIN 6.8 g/dL (6.5-8.1)
[2024-07-01 23:17] LABS: LIPASE 34 U/L (8-78)
[2024-07-01 23:25] LABS: GLUCOSE 466 mg/dL (74-118)
[2024-07-01] MEDS: SODIUM CHLORIDE 0.9% 1000ML 1,000 ML IV STA (23:32)
[2024-07-01 23:35] VITALS: PULSE 82; RESP 18
[2024-07-01] MEDS: INSULIN REGULAR, HUMAN 100 UNIT/1 ML IV STA (23:35)
[2024-07-01 23:44] VITALS: PULSE 80; RESP 15; O2SAT 93
[2024-07-01] MEDS: ALBUTEROL/IPRATROPIUM 3 ML NEB NEB STA (23:46)
[2024-07-02] MEDS ORDERED: PREDNISONE20 MG PO (00:55)
[2024-07-02] MEDS ORDERED: AZITHROMYCIN250 MG PO (00:55)
[2024-07-02] MEDS ORDERED: VENTOLIN HFA18 GM INH (00:55)
[2024-07-02] MEDS ORDERED: IOPAMIDOL 370 MG/ML 100 ML INFUS..BTL INJ ONE (01:21)
[2024-07-02 01:29] VITALS: BP 104/56; PULSE 84; RESP 19; TEMP 98.5; O2SAT 96
== END 2024-07-02 01:30 | disposition home or self-care (01) ==
LOC: ER 22:23
DX: R06.02 Shortness of breath (principal); J18.9 Pneumonia, unspecified organism; H92.01 Otalgia, right ear; E11.22 Type 2 diabetes mellitus with diabetic chronic kidney disease; E11.65 Type 2 diabetes mellitus with hyperglycemia; J44.9 Chronic obstructive pulmonary disease, unspecified; E78.5 Hyperlipidemia, unspecified; M06.9 Rheumatoid arthritis, unspecified; E66.9 Obesity, unspecified; Z11.52 Encounter for screening for COVID-19
CPT/HCPCS: 0223U; 36415; 71045; 71260; 80053; 82550; 82948; 83690; 83880; 84484; 85025; 87400; 93005; 94640; 94799; 99284; J1817; J7030; Q9967

== ENCOUNTER 2024-10-18 15:49 | Emergency (ER) | payer SELFPAY ==
[~2024-10-18] VITALS: Ht 152.4 cm; Wt 106.6 kg
[~2024-10-18 15:49] MED LIST changes: +AZITHROMYCIN250 MG PO; +PREDNISONE20 MG PO; +VENTOLIN HFA18 GM INH
[2024-10-18 16:08] VITALS: TEMP 97.9
[2024-10-18] MEDS ORDERED: INSULIN REGULAR, HUMAN 100 UNIT/1 ML SQ ONE (16:15)
[2024-10-18 16:30] LABS: BASOPHILS % 0.5 % (0.0-1.0); EOSINOPHILS # (AUTO) 0.2 (0.0-0.4); EOSINOPHILS % 3.3 % (0.0-6.0); HEMATOCRIT 43.3 % (34.2-44.1); HEMOGLOBIN 14.8 g/dL (12.0-16.0); LYMPHOCYTES # (AUTO) 1.5 (1.0-3.2); LYMPHOCYTES % 25.2 % (18.0-39.1); MEAN CORPUSCULAR HEMOGLOBIN 29.7 pg (28-32); MEAN CORPUSCULAR HGB CONC 34.2 g/dL (31-35); MEAN CORPUSCULAR VOLUME 86.9 fL (81-99); MONOCYTES # (AUTO) 1.1 (0.2-0.8); MONOCYTES % 17.5 % (4.4-11.3); NEUTROPHILS # (AUTO) 3.2 (2.1-6.9); NEUTROPHILS % 53.2 % (38.7-80.0); PLATELET COUNT 209 x10e3/uL (140-360); RED BLOOD COUNT 4.98 x10e6/uL (3.6-5.1); RED CELL DISTRIBUTION WIDTH 12.7 % (11.7-14.4); WHITE BLOOD COUNT 6.04 x10e3/uL (4.8-10.8)
[2024-10-18 16:58] LABS: ALBUMIN 3.4 g/dL (3.5-5.0); ALBUMIN/GLOBULIN RATIO 0.9 (0.8-2.0); ANION GAP 18.4 mmol/L (8-16); BILIRUBIN,TOTAL 0.4 mg/dL (0.2-1.2); CALCIUM 9.2 mg/dL (8.4-10.2); CREATININE, SERUM 0.75 mg/dL (0.57-1.11); MAGNESIUM 1.6 MG/DL (1.3-2.1); POTASSIUM 4.4 mmol/L (3.5-5.1); TOTAL PROTEIN 7.4 g/dL (6.5-8.1)
[2024-10-18 17:01] LABS: CLARITY,URINE CLEAR (CLEAR); COLOR,URINE YELLOW (YELLOW); PH,URINE 5.5 (5 - 7)
[2024-10-18 17:02] LABS: BILIRUBIN,URINE NEGATIVE (NEGATIVE); GLUCOSE, URINE 500 (NEGATIVE); KETONES,URINE 2+ (NEGATIVE); LEUKOCYTE ESTERASE ,URINE NEGATIVE (NEGATIVE); NITRITE,URINE POSITIVE (NEGATIVE); PROTEIN,URINE DIPSTICK NEGATIVE (NEGATIVE); URINE UROBILINOGEN 0.2 mg/dL (0.2 - 1)
[2024-10-18 17:10] LABS: BACTERIA,URINE MODERATE /HPF; EPITHELIAL CELLS,URINE MODERATE /LPF
[2024-10-18] MEDS: SODIUM CHLORIDE 0.9% 1000ML 1,000 ML IV STA (17:32)
[2024-10-18] MEDS ORDERED: CEFTRIAXONE 1 GM VIAL ONE (17:39)
[2024-10-18] MEDS: INSULIN REGULAR, HUMAN 100 UNIT/1 ML IV ONE (17:40)
[2024-10-18 18:16] VITALS: PULSE 70; RESP 20; O2SAT 96
[2024-10-18] MEDS ORDERED: FLUCONAZOLE150 MG PO (18:44)
[2024-10-18] MEDS ORDERED: METFORMIN HCL1000 MG PO (18:44)
[2024-10-18] MEDS ORDERED: CEFDINIR300 MG PO (18:44)
== END 2024-10-18 19:15 | disposition home or self-care (01) ==
LOC: ER 16:16
DX: B37.31 Acute candidiasis of vulva and vagina (principal); N39.0 Urinary tract infection, site not specified; E11.65 Type 2 diabetes mellitus with hyperglycemia; J44.9 Chronic obstructive pulmonary disease, unspecified; E78.5 Hyperlipidemia, unspecified; J45.909 Unspecified asthma, uncomplicated; M06.9 Rheumatoid arthritis, unspecified; E66.9 Obesity, unspecified
CPT/HCPCS: 36415; 80053; 81001; 82948; 83735; 85025; 87086; 87186; 99283; J0696; J7030

== ENCOUNTER 2024-10-31 19:08 | Emergency (ER) | payer SELFPAY ==
[~2024-10-31] VITALS: Ht 157.5 cm; Wt 106.6 kg
[~2024-10-31 19:08] MED LIST changes: +CEFDINIR300 MG PO; +METFORMIN HCL1000 MG PO
[2024-10-31 19:20] VITALS: PULSE 78; RESP 17; TEMP 98
[2024-10-31] MEDS: KETOROLAC TROMETHAMINE 30 MG/ML VIAL IM STA (21:21)
[2024-10-31 23:32] VITALS: BP 117/65; PULSE 68; RESP 18; TEMP 98.7; O2SAT 98
== END 2024-10-31 23:25 | disposition home or self-care (01) ==
LOC: ER 19:34
DX: S92.534A Nondisplaced fracture of distal phalanx of right lesser toe(s), initial encounter for closed fracture (principal); S80.211A Abrasion, right knee, initial encounter; W01.0XXA Fall on same level from slipping, tripping and stumbling without subsequent striking against object, initial encounter; Y93.01 Activity, walking, marching and hiking; Y92.89 Other specified places as the place of occurrence of the external cause; E11.9 Type 2 diabetes mellitus without complications; E78.5 Hyperlipidemia, unspecified; J44.9 Chronic obstructive pulmonary disease, unspecified; J45.909 Unspecified asthma, uncomplicated; N28.9 Disorder of kidney and ureter, unspecified; M06.9 Rheumatoid arthritis, unspecified; E66.9 Obesity, unspecified
CPT/HCPCS: 70450; 71250; 73562; 73660; 99283; J1885

== ENCOUNTER 2024-11-04 20:55 | Emergency (ER) | payer SELFPAY ==
[~2024-11-04] VITALS: Ht 157.5 cm; Wt 106.6 kg
[2024-11-04 20:57] VITALS: TEMP 97.5
[2024-11-04 21:39] LABS: BASOPHILS % 0.4 % (0.0-1.0); EOSINOPHILS # (AUTO) 0.3 (0.0-0.4); EOSINOPHILS % 3.7 % (0.0-6.0); HEMATOCRIT 39.6 % (34.2-44.1); HEMOGLOBIN 13.6 g/dL (12.0-16.0); LYMPHOCYTES # (AUTO) 1.8 (1.0-3.2); LYMPHOCYTES % 25.8 % (18.0-39.1); MEAN CORPUSCULAR HGB CONC 34.3 g/dL (31-35); MEAN CORPUSCULAR VOLUME 87.2 fL (81-99); MONOCYTES # (AUTO) 1.2 (0.2-0.8); MONOCYTES % 17.9 % (4.4-11.3); NEUTROPHILS # (AUTO) 3.6 (2.1-6.9); NEUTROPHILS % 52.1 % (38.7-80.0); PLATELET COUNT 201 x10e3/uL (140-360); RED BLOOD COUNT 4.54 x10e6/uL (3.6-5.1); RED CELL DISTRIBUTION WIDTH 12.7 % (11.7-14.4); WHITE BLOOD COUNT 6.83 x10e3/uL (4.8-10.8)
[2024-11-04 21:55] LABS: ALBUMIN 3.3 g/dL (3.5-5.0); ANION GAP 15.9 mmol/L (8-16); BILIRUBIN,TOTAL 0.2 mg/dL (0.2-1.2); CALCIUM 8.8 mg/dL (8.4-10.2); CREATININE, SERUM 0.66 mg/dL (0.57-1.11); POTASSIUM 3.9 mmol/L (3.5-5.1); TOTAL PROTEIN 6.7 g/dL (6.5-8.1)
[2024-11-05 00:17] VITALS: PULSE 72; RESP 14
[2024-11-05 02:32] VITALS: PULSE 77; RESP 22; O2SAT 94
== END 2024-11-05 02:45 | disposition home or self-care (01) ==
LOC: ER 21:01
DX: R07.89 Other chest pain (principal); E11.65 Type 2 diabetes mellitus with hyperglycemia; N28.9 Disorder of kidney and ureter, unspecified; J44.9 Chronic obstructive pulmonary disease, unspecified; E78.5 Hyperlipidemia, unspecified; M06.9 Rheumatoid arthritis, unspecified; J45.909 Unspecified asthma, uncomplicated; E66.9 Obesity, unspecified; K76.0 Fatty (change of) liver, not elsewhere classified
CPT/HCPCS: 36415; 71045; 71250; 80053; 83880; 84484; 85025; 93005; 94799; 99284

== ENCOUNTER 2024-12-09 23:20 | Emergency (ER) | payer SELFPAY ==
[~2024-12-09] VITALS: Ht 157.5 cm; Wt 106.6 kg
[2024-12-09 23:25] VITALS: TEMP 98.6
[2024-12-09] MEDS ORDERED: SODIUM CHLORIDE FLUSH 10 ML SYR IV PRN (23:45)
[2024-12-09 23:49] VITALS: PULSE 93; RESP 20; O2SAT 96
[2024-12-09] MEDS: ALBUTEROL/IPRATROPIUM 3 ML NEB NEB ONE (23:49)
[2024-12-10 00:05] VITALS: RESP 20
[2024-12-10 00:05] LABS: BASOPHILS % 0.5 % (0.0-1.0); EOSINOPHILS # (AUTO) 0.4 (0.0-0.4); HEMATOCRIT 40.7 % (34.2-44.1); HEMOGLOBIN 13.8 g/dL (12.0-16.0); LYMPHOCYTES # (AUTO) 3.1 (1.0-3.2); LYMPHOCYTES % 46.8 % (18.0-39.1); MEAN CORPUSCULAR HEMOGLOBIN 29.7 pg (28-32); MEAN CORPUSCULAR HGB CONC 33.9 g/dL (31-35); MEAN CORPUSCULAR VOLUME 87.5 fL (81-99); MONOCYTES # (AUTO) 1.1 (0.2-0.8); NEUTROPHILS % 30.2 % (38.7-80.0); PLATELET COUNT 196 x10e3/uL (140-360); RED BLOOD COUNT 4.65 x10e6/uL (3.6-5.1); RED CELL DISTRIBUTION WIDTH 12.9 % (11.7-14.4); WHITE BLOOD COUNT 6.63 x10e3/uL (4.8-10.8)
[2024-12-10 00:37] LABS: ALBUMIN 3.6 g/dL (3.5-5.0); ALBUMIN/GLOBULIN RATIO 0.9 (0.8-2.0); ANION GAP 18.3 mmol/L (8-16); BILIRUBIN,TOTAL 0.2 mg/dL (0.2-1.2); CALCIUM 9.5 mg/dL (8.4-10.2); CREATININE, SERUM 0.8 mg/dL (0.57-1.11); POTASSIUM 4.3 mmol/L (3.5-5.1); TOTAL PROTEIN 7.5 g/dL (6.5-8.1)
[2024-12-10 00:56] LABS: INFLUENZA A AG POSITIVE (NEGATIVE); INFLUENZA B AG NEGATIVE (NEGATIVE)
[2024-12-10 00:57] LABS: CORONAVIRUS COVID-19 AG NEGATIVE (NEGATIVE)
[2024-12-10 01:00] VITALS: PULSE 92
[2024-12-10] MEDS ORDERED: PREDNISONE50 MG PO (01:40)
[2024-12-10 02:00] VITALS: BP 97/59; PULSE 98; RESP 20; O2SAT 100
== END 2024-12-10 01:50 | disposition home or self-care (01) ==
LOC: ER 23:25
DX: R06.02 Shortness of breath (principal); J10.1 Influenza due to other identified influenza virus with other respiratory manifestations; R05.9 Cough, unspecified; E11.65 Type 2 diabetes mellitus with hyperglycemia; J44.9 Chronic obstructive pulmonary disease, unspecified; M06.9 Rheumatoid arthritis, unspecified; E66.9 Obesity, unspecified; Z11.52 Encounter for screening for COVID-19
CPT/HCPCS: 36415; 71045; 80053; 83880; 85025; 93005; 94640; 94760; 94799; 99284

== ENCOUNTER 2024-12-20 21:06 | Emergency (ER) | payer SELFPAY ==
[~2024-12-20] VITALS: Ht 151.8 cm; Wt 106.6 kg
[~2024-12-20 21:06] MED LIST changes: +PREDNISONE50 MG PO
[2024-12-20 21:10] VITALS: PULSE 95; RESP 20; TEMP 98.7
[2024-12-20 21:44] LABS: BASOPHILS # (AUTO) 0.1 (0.0-0.1); BASOPHILS % 0.3 % (0.0-1.0); EOSINOPHILS # (AUTO) 0.3 (0.0-0.4); EOSINOPHILS % 1.4 % (0.0-6.0); HEMATOCRIT 43.9 % (34.2-44.1); HEMOGLOBIN 14.8 g/dL (12.0-16.0); LYMPHOCYTES # (AUTO) 1.5 (1.0-3.2); LYMPHOCYTES % 8.4 % (18.0-39.1); MEAN CORPUSCULAR HEMOGLOBIN 29.9 pg (28-32); MEAN CORPUSCULAR HGB CONC 33.7 g/dL (31-35); MEAN CORPUSCULAR VOLUME 88.7 fL (81-99); MONOCYTES % 10.9 % (4.4-11.3); NEUTROPHILS # (AUTO) 14.2 (2.1-6.9); NEUTROPHILS % 78.7 % (38.7-80.0); PLATELET COUNT 224 x10e3/uL (140-360); RED BLOOD COUNT 4.95 x10e6/uL (3.6-5.1); RED CELL DISTRIBUTION WIDTH 13.2 % (11.7-14.4); WHITE BLOOD COUNT 18.08 x10e3/uL (4.8-10.8)
[2024-12-20] MEDS: ONDANSETRON HCL INJ 2MG/ML 2ML 2 MG/ML VIAL IV STA (21:54)
[2024-12-20] MEDS: Morphine 4mg INJECTION 4 MG/ML INJ IV ONE (21:54)
[2024-12-20 22:04] LABS: ALBUMIN 3.7 g/dL (3.5-5.0); ALBUMIN/GLOBULIN RATIO 0.9 (0.8-2.0); ANION GAP 20.8 mmol/L (8-16); BILIRUBIN,TOTAL 0.5 mg/dL (0.2-1.2); CALCIUM 8.9 mg/dL (8.4-10.2); CREATININE, SERUM 0.68 mg/dL (0.57-1.11); POTASSIUM 4.8 mmol/L (3.5-5.1); TOTAL PROTEIN 7.7 g/dL (6.5-8.1)
[2024-12-20 22:21] LABS: PLATELET ESTIMATE ADEQUATE; PLATELET MORPHOLOGY COMMENT NORMAL
[2024-12-20] MEDS ORDERED: BACTRIM DS TAB1 EACH PO (22:54)
[2024-12-20] MEDS ORDERED: ALBUTEROL1.25 MG/3 NEB (22:54)
[2024-12-20] MEDS ORDERED: ONDANSETRON ODT4 MG SL (22:54)
[2024-12-20 23:14] LABS: BILIRUBIN,URINE NEGATIVE (NEGATIVE); CLARITY,URINE CLOUDY (CLEAR); COLOR,URINE YELLOW (YELLOW); GLUCOSE, URINE 500 (NEGATIVE); KETONES,URINE 1+ (NEGATIVE); LEUKOCYTE ESTERASE ,URINE NEGATIVE (NEGATIVE); NITRITE,URINE NEGATIVE (NEGATIVE); PH,URINE 5 (5 - 7); PROTEIN,URINE DIPSTICK NEGATIVE (NEGATIVE); URINE UROBILINOGEN 0.2 mg/dL (0.2 - 1)
[2024-12-20 23:19] LABS: BACTERIA,URINE MANY /HPF; EPITHELIAL CELLS,URINE RARE /LPF; RBC,URINE 0-5 /HPF (0-5)
[2024-12-20 23:20] LABS: MUCUS,URINE MANY
[2024-12-20 23:59] VITALS: BP 119/72; PULSE 89; RESP 20; TEMP 97.6; O2SAT 93
== END 2024-12-20 23:40 | disposition home or self-care (01) ==
LOC: ER 21:20
DX: M79.662 Pain in left lower leg (principal); L03.116 Cellulitis of left lower limb; E11.22 Type 2 diabetes mellitus with diabetic chronic kidney disease; E11.65 Type 2 diabetes mellitus with hyperglycemia; N18.9 Chronic kidney disease, unspecified; E78.5 Hyperlipidemia, unspecified; J44.9 Chronic obstructive pulmonary disease, unspecified; J45.909 Unspecified asthma, uncomplicated; M06.9 Rheumatoid arthritis, unspecified; E66.9 Obesity, unspecified
CPT/HCPCS: 36415; 80053; 81001; 85025; 93971; 99284; J2270; J2405

== ENCOUNTER 2025-02-01 21:32 | Emergency (ER) | payer SELFPAY ==
[~2025-02-01] VITALS: Ht 151.8 cm; Wt 106.6 kg
[2025-02-01 21:32] VITALS: TEMP 97.9
[~2025-02-01 21:32] MED LIST changes: +ALBUTEROL1.25 MG/3 NEB; +BACTRIM DS TAB1 EACH PO; +ONDANSETRON ODT4 MG SL
[2025-02-01 22:54] LABS: BASOPHILS % 0.5 % (0.0-1.0); EOSINOPHILS # (AUTO) 0.3 (0.0-0.4); EOSINOPHILS % 4.7 % (0.0-6.0); HEMATOCRIT 41.3 % (34.2-44.1); HEMOGLOBIN 14.2 g/dL (12.0-16.0); LYMPHOCYTES # (AUTO) 2.1 (1.0-3.2); LYMPHOCYTES % 32.8 % (18.0-39.1); MEAN CORPUSCULAR HEMOGLOBIN 30.3 pg (28-32); MEAN CORPUSCULAR HGB CONC 34.4 g/dL (31-35); MEAN CORPUSCULAR VOLUME 88.1 fL (81-99); MONOCYTES % 16.5 % (4.4-11.3); NEUTROPHILS # (AUTO) 2.9 (2.1-6.9); NEUTROPHILS % 45.3 % (38.7-80.0); PLATELET COUNT 228 x10e3/uL (140-360); RED BLOOD COUNT 4.69 x10e6/uL (3.6-5.1); WHITE BLOOD COUNT 6.32 x10e3/uL (4.8-10.8)
[2025-02-01] MEDS: SODIUM CHLORIDE 0.9% 1000ML 1,000 ML IV ONE (23:18)
[2025-02-01 23:38] LABS: CORONAVIRUS COVID-19 AG NEGATIVE (NEGATIVE); INFLUENZA A AG NEGATIVE (NEGATIVE); INFLUENZA B AG NEGATIVE (NEGATIVE)
[2025-02-01 23:49] LABS: ALBUMIN 3.4 g/dL (3.5-5.0); ALBUMIN/GLOBULIN RATIO 0.9 (0.8-2.0); ANION GAP 18.3 mmol/L (8-16); BILIRUBIN,TOTAL 0.3 mg/dL (0.2-1.2); CALCIUM 8.8 mg/dL (8.4-10.2); CREATININE, SERUM 0.64 mg/dL (0.57-1.11); POTASSIUM 4.3 mmol/L (3.5-5.1); TOTAL PROTEIN 7.4 g/dL (6.5-8.1)
[2025-02-02 01:20] VITALS: BP 134/88; PULSE 122
[2025-02-02] MEDS: METOPROLOL TARTRATE INJ 1 MG/ML VIAL IV ONE (01:20)
[2025-02-02] MEDS ORDERED: IOPAMIDOL 370 MG/ML 100 ML INFUS..BTL INJ ONE (01:50)
[2025-02-02 02:30] VITALS: PULSE 113; RESP 20; O2SAT 94
== END 2025-02-02 02:36 | disposition home or self-care (01) ==
LOC: ER 22:38
DX: R06.02 Shortness of breath (principal); S40.861A Insect bite (nonvenomous) of right upper arm, initial encounter; S80.861A Insect bite (nonvenomous), right lower leg, initial encounter; J44.9 Chronic obstructive pulmonary disease, unspecified; E11.65 Type 2 diabetes mellitus with hyperglycemia; E78.5 Hyperlipidemia, unspecified; M06.9 Rheumatoid arthritis, unspecified; E66.01 Morbid (severe) obesity due to excess calories; J45.909 Unspecified asthma, uncomplicated; Z11.52 Encounter for screening for COVID-19; R94.31 Abnormal electrocardiogram [ECG] [EKG]
CPT/HCPCS: 36415; 71045; 71260; 80053; 83880; 84484; 85025; 87428; 93005; 99284; J7030; Q9967